=== PATIENT | male | born 1995 | race Caucasian/White ===

== ENCOUNTER 2016-09-12 15:33 | Emergency (ER) | payer BC ==
[2016-09-12 16:03] VITALS: BP 132/73
--- NOTE | 2016-09-12 17:10 | UC ---
Complaint Male HPI - HPI Summary HPI Summary: PATIENT PRESENTS WITH SCANT AMOUNT OF BLOOD IN THE URINE AT END OF URINATION 1X THIS MORNING. HE HAS BEEN TRAINING FOR A MARATHON AND FIGURED IT WAS DECREASED PO INTAKE CAUSING AN INFECTION. PAIN WAS PRESENT WHILE EXPERIENCING THE HEMATURIA, BUT DENIES SUPRAPUBIC PAIN OR PAIN CURRENTLY IN ABDOMEN OR PENIS. HE DENIES CHANCE OF STD'S. HE HAS NEVER HAD THIS PAIN BEFORE AND DENIES PREVIOUS KIDNEY STONES. HE IS OTHERWISE HEALTHY. DENIES FEVER. ENDORSES MILD RIGHT FLANK PAIN BUT CONTRIBUTED PAIN TO RECENT TRAINING. - History of Current Complaint Hx Obtained From: Patient Onset/Duration: Sudden Onset, Lasting Minutes Timing: Lasting Minutes Severity Initially: Mild Severity Currently: None Pain Intensity: 1 Pain Scale Used: 0-10 Numeric Location: Penis Character: Sharp Aggravating Factor(s): Voiding Associated Signs And Symptoms: Positive: Back Pain, Hematuria - Risk Factors Testicular Torsion: Negative <Brunilda Douglas - Last Filed: 09/12/16 17:03> <Celine Ordonez - Last Filed: 09/12/16 17:31> - History of Current Complaint Chief Complaint: [facility] Stated Complaint: BLOOD IN URINE Time Seen by Provider: 09/12/16 16:24 - Allergies/Home Medications Allergies/Adverse Reactions: Allergies Allergy/AdvReac Type Severity Reaction Status Date / Time Cefaclor [From Ceclor] Allergy Unknown Verified 01/19/16 18:16 Reaction Details Sulfa Antibiotics Allergy Unknown Verified 01/19/16 18:16 Reaction Details PMH/Surg Hx/FS Hx/Imm Hx Previously Healthy: Yes Respiratory History Of: Reports: Asthma - CHILD - Surgical History Surgical History: Yes Surgery Procedure, Year, and Place: TONSILS; WISDOM TEETH - Family History Known Family History: Positive: Hypertension - Social History Occupation: Unemployed Lives: With Family Alcohol Use: Weekly Substance Use Type: None Smoking Status (MU): Never Smoked Tobacco Type: Cigarettes Have You Smoked in the Last Year: No <Brunilda Douglas - Last Filed: 09/12/16 17:03> Review of Systems Constitutional: Negative Skin: Negative Respiratory: Negative Cardiovascular: Negative Gastrointestinal: Negative Genitourinary: Hematuria Motor: Negative Musculoskeletal: Negative Neurological: Negative All Other Systems Reviewed And Are Negative: Yes <Brunilda Douglas - Last Filed: 09/12/16 17:03> Physical Exam Triage Information Reviewed: Yes Appearance: Well-Appearing, No Pain Distress, Well-Nourished Vital Signs: Initial Vital Signs Temp 98.3 F 09/12/16 15:58 Pulse 59 09/12/16 15:58 Resp 18 09/12/16 15:58 BP 132/73 09/12/16 15:58 Pulse Ox 100 09/12/16 15:58 Vital Signs Reviewed: Yes Eye Exam: Normal Eyes: Positive: Conjunctiva Clear Neck exam: Normal Neck: Positive: Supple, Nontender, No Lymphadenopathy Respiratory Exam: Normal Respiratory: Positive: Chest non-tender, Lungs clear Cardiovascular Exam: Normal Cardiovascular: Positive: RRR Abdominal Exam: Normal Abdomen Description: Positive: Nontender Musculoskeletal: Positive: Strength Intact Neurological Exam: Normal Neurological: Positive: Alert Psychological: Positive: Normal Response To Family, Age Appropriate Behavior Skin Exam: Normal <Brunilda Douglas - Last Filed: 09/12/16 17:03> Vital Signs: Initial Vital Signs Temp 98.3 F 09/12/16 15:58 Pulse 59 09/12/16 15:58 Resp 18 09/12/16 15:58 BP 132/73 09/12/16 15:58 Pulse Ox 100 09/12/16 15:58 <Celine Ordonez - Last Filed: 09/12/16 17:31> Complaint Male Course/Dx - Course Course Of Treatment: PATIENT PRESENTS WITH TERMINAL HEMATURIA PRESENT AT END OF VOIDING X 1. DENIES SUPRAPUBIC OR PENILE PAIN CURRENTLY. ENDORSES MILD RIGHT FLANK PAIN PRESENT FOR 1X WEEK WHICH HAS BEEN INTERMITTENT. DENIES CHANCE OF STD. AFEBRILE. PATIENT IS OTHERWISE HEATLHY. NO CT SCAN AT URGENT CARE. EXPLAINED TO PATIENT IT WOULD LIKELY NOT CHANGE OUR COURSE OF TREATMENT AND THIS PAIN COULD BE CONTRIBUTED TO KIDNEY STONE OR PASSED KIDNEY STONE. HE WILL FOLLOW UP WITH DR. LUNDBERG OR DR. GRACE IF SYMPTOMS PERSIST AND WILL GO TO ED IF HE EXPERIENCES WORSENING PAIN, BLOOD OR FEBRILE ILLNESS. ENCOURAGED ACIDIC DRINKS TO PREVENT KIDNEY STONES. FATHER INQUIRED ABOUT TUMORS/CANCERS. EDUCATED ON LOW SUSPICIAN FOR BLADDER CANCER D/T AGE AND NON-SMOKING STATUS. PATIENT AND FATHER BOTH OK WITH DISCHARGE. - Differential Dx/Diagnosis Differential Diagnosis/HQI/PQRI: Prostatitis, Pyelonephritis, Ureteral Calculi, Urinary Tract Infection Provider Diagnoses: HEMATURIA <Brunilda Douglas - Last Filed: 09/12/16 17:03> Discharge <Brunilda Douglas - Last Filed: 09/12/16 17:03> <Celine Ordonez - Last Filed: 09/12/16 17:31> - Discharge Plan Condition: Stable Disposition: HOME Patient Education Materials: Kidney Stones (ED), Flank Pain (ED) Referrals: No Primary Care Phys,NOPCP [Primary Care Provider] - Luan Lundberg MD [Medical Doctor] - Kobi Grace MD [Medical Doctor] - Additional Instructions: Follow up with PCP. If symptoms persist, go to the ED. If you develop a fever, worsening back pain or blood in the urine in the form or clots, to to ED. I will refer you to dr. lundberg and dr. grace for follow up. Attestation Statement User Type: Provider - I was available for consult. This patient was seen by the GRACY. The patient was not presented to, seen by, or examined by me. - Monse <Celine Ordonez - Last Filed: 09/12/16 17:31>
== END 2016-09-12 17:10 | disposition home or self-care (01) ==
LOC: UCEAST 15:33
DX: R31.0 Gross hematuria (principal)
CPT/HCPCS: 81003; 99211; G0463